=== PATIENT | female | born 1995 | race Caucasian/White ===

== ENCOUNTER 2019-12-10 19:32 | Emergency (ER) | payer BC, SELFPAY ==
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
[2019-12-10 20:15] LABS: Basophils Percent Auto 0.5 % (0.2-1.2); Eosinophils Absolute Auto 0.2 K/mm3 (0-0.3); Eosinophils Percent Auto 3.2 % (0-4.4); Hematocrit 37.1 % (37.0-47.0); Hemoglobin 12.8 g/dL (12.0-15.0); Immature Granulocyte Absolute 0.01 K/mm3 (0.00-0.031); Immature Granulocyte Percent A 0.2 % (0-0.5); Lymphocytes Absolute Auto 2.08 K/mm3 (0.9-3.2); Lymphocytes Percent Auto 37.1 % (18.3-44.2); Mean Corpuscular HGB Conc 34.5 g/dl (32-36); Mean Corpuscular Hemoglobin 30.3 pg (26-34); Mean Corpuscular Volume 87.7 fl (80-100); Mean Platelet Volume 11.2 fl (7.4-10.4); Monocytes Absolute Auto 0.3 K/mm3 (0.1-0.6); Monocytes Percent Auto 4.5 % (2.6-8.5); Neutrophils Absolute Auto 3.1 K/mm3 (1.3-6.7); Neutrophils Percent Auto 54.5 % (45.5-73.1); Platelet Count Result 185 k/mm3 (150-375); Red Blood Count 4.23 M/mm3 (4.2-5.4); Red Cell Distribution Width 11.7 % (11.5-14.5); White Blood Count 5.6 K/mm3 (4.5-10.0)
[2019-12-10 20:21] VITALS: BP 115/60; PULSE 67; RESP 20; TEMP 37.1; O2SAT 99
[2019-12-10 20:30] LABS: Add Urine Microscopic? YES; Appearance Urine Clear (Clear); Bacteria Urine Trace /hpf; Bilirubin Urine Negative (Negative); Blood Urine Negative (Negative); Color Urine Straw (Yellow); Glucose Urine UA Negative (Negative); Ketones Urine Negative (Negative); Leukocyte Esterase Ur 2+ LEU/UL (Negative); Mucus Urine Rare /lpf; Nitrate Urine Negative (Negative); Protein Urine Negative (Negative); RBC Urine 0-2 /hpf (0-2); Specific Grav Ur 1.005 (1.001-1.035); Squamous Epithelial Cell Urine Occasional /hpf (Few); Urobilinogen Urine Negative mg/dL (<2.0)
[2019-12-10 20:35] LABS: Ethanol < 10 mg/dL (<10)
[2019-12-10 20:43] LABS: Alanine Aminotransferase 16 U/L (4-35); Albumin Level 4.2 g/dL (3.5-5.1); Alkaline Phosphatase 58 U/L (38-126); Aspartate Amino Transferase 21 U/L (14-36); Bilirubin,Total 0.7 mg/dL (0.2-1.3); Blood Urea Nitrogen 10 mg/dL (7-17); Calcium 8.9 mg/dL (8.4-10.2); Carbon Dioxide 25 mmol/L (22-30); Chloride 106 mmol/L (98-107); Estimated CRCL calculation 106 ml/min; Estimated Glomerular Filt Rate > 60; Glucose 81 mg/dL (65-105); Sodium 138 mmol/L (137-145)
[2019-12-10 20:59] LABS: Amphetamine Screen Urine Negative (Negative); Barbiturate Screen Urine Negative (Negative); Benzodiazepines Screen Urine Positive (Negative); Cannabinoid Screen Urine Positive (Negative); Cocaine Screen Urine Negative (Negative); Methadone Screen Urine Negative (Negative); Opiate Screen Urine Negative (Negative); Phencyclidine Screen Urine Negative (Negative)
[2019-12-10 21:01] LABS: Potassium 3.3 mmol/L (3.4-5.0)
--- NOTE | 2019-12-10 22:08 | PC.NURSE ---
crisis nurse in with pt.
[2019-12-11 00:10] VITALS: BP 114/63; PULSE 73; RESP 16; O2SAT 100
[2019-12-11 04:40] VITALS: BP 112/62; PULSE 79; RESP 16; O2SAT 100
[2019-12-11 07:29] VITALS: BP 103/65; PULSE 70; RESP 14; O2SAT 97
--- NOTE | 2019-12-11 07:30 | PC.NURSE ---
Assumed care of pt, pt is alert and upright on stretcher, pt calm and cooperative. Discussed POC, ordered breakfast tray for pt. Pt VSS. Pt denies SI/HI at this time. Sitter remains at bedside.
[2019-12-11 11:04] VITALS: BP 106/53; PULSE 76; RESP 15; O2SAT 100
--- NOTE | 2019-12-11 12:03 | PC.NURSE ---
spoke to dietary, lunch tray ordered for pt
[2019-12-11 14:12] VITALS: BP 121/88; PULSE 75; RESP 15; O2SAT 100
--- NOTE | 2019-12-11 18:02 | ED.GENADULT ---
HPI - General Adult General Chief complaint: Psychiatric Symptoms Stated complaint: SI Time Seen by Provider: 12/11/19 17:54 Related Data Home Medications Medication Instructions Recorded Confirmed budesonide-formoterol [Symbicort] 2 puff INHALATION Q12H 12/10/19 cetirizine mg 12/10/19 Allergies Allergy/AdvReac Type Severity Reaction Status Date / Time ANESTETICS AdvReac Intermediate Uncoded 12/12/14 23:15 [facility] Past Medical History Medical History (Updated 12/11/19 @ 06:00 by Tr Gardner MD) Depression Surgical History Surgical History (Updated 12/10/19 @ 20:06 by Tr Gardner MD) No pertinent past surgical history Social History Social History (Updated 12/10/19 @ 20:07 by Tr Gardner MD) Smoking status: Never smoker Alcohol intake: never Substance use type: marijuana Course Vital Signs Vital signs: Vital Signs Temperature 37.1 C 12/10/19 20:21 Pulse Rate 67 12/10/19 20:21 Respiratory Rate 20 12/10/19 20:21 Blood Pressure 115/60 12/10/19 20:21 Pulse Oximetry 99 12/10/19 20:21 Temperature 36.7 C 12/12/19 15:14 Pulse Rate 75 12/12/19 15:14 Respiratory Rate 16 12/12/19 15:14 Blood Pressure 98/68 L 12/12/19 15:14 Pulse Oximetry 98 12/12/19 15:14 Medical Decision Making Vital Signs Vital Signs: Vital Signs Temperature 37.1 C 12/10/19 20:21 Pulse Rate 67 12/10/19 20:21 Respiratory Rate 20 12/10/19 20:21 Blood Pressure 115/60 12/10/19 20:21 Pulse Oximetry 99 12/10/19 20:21 Temperature 36.7 C 12/12/19 15:14 Pulse Rate 75 12/12/19 15:14 Respiratory Rate 16 12/12/19 15:14 Blood Pressure 98/68 L 12/12/19 15:14 Pulse Oximetry 98 12/12/19 15:14 Lab Data Result diagrams: 12/10/19 20:03 12/10/19 20:03 Labs: Lab Results 12/10/19 12/10/19 12/10/19 Range/Units 20:03 20:03 20:03 WBC 5.6 (4.5-10.0) K/mm3 RBC 4.23 (4.2-5.4) M/mm3 Hgb 12.8 (12.0-15.0) g/dL Hct 37.1 (37.0-47.0) % MCV 87.7 (80-100) fl MCH 30.3 (26-34) pg MCHC 34.5 (32-36) g/dl RDW 11.7 (11.5-14.5) % Plt Count 185 (150-375) k/mm3 MPV 11.2 H (7.4-10.4) fl Immature Gran % (Auto) 0.2 (0-0.5) % Neut % (Auto) 54.5 (45.5-73.1) % Lymph % (Auto) 37.1 (18.3-44.2) % [place] % (Auto) 4.5 (2.6-8.5) % Eos % (Auto) 3.2 (0-4.4) % Baso % (Auto) 0.5 (0.2-1.2) % Lymph # (Auto) 2.08 (0.9-3.2) K/mm3 [place] # (Auto) 0.3 (0.1-0.6) K/mm3 Eos # (Auto) 0.2 (0-0.3) K/mm3 Baso # (Auto) 0.0 (0.0-0.1) K/mm3 Abs Immat Gran (auto) 0.01 (0.00-0.031) K/mm3 Absolute Neuts (auto) 3.1 (1.3-6.7) K/mm3 Absolute Nucleated RBC 0.0 (0.0-0.012) K/mm3 Nucleated RBC % 0.0 (0.0-0.2) % Sodium 138 (137-145) mmol/L Potassium 3.3 L (3.4-5.0) mmol/L Chloride 106 (98-107) mmol/L Carbon Dioxide 25 (22-30) mmol/L BUN 10 (7-17) mg/dL Creatinine 0.60 L (0.7-1.0) mg/dL Estim Creat Clear Calc 106 ml/min Estimated GFR > 60 (59 - ) Glucose 81 (65-105) mg/dL Calcium 8.9 (8.4-10.2) mg/dL Total Bilirubin 0.7 (0.2-1.3) mg/dL AST 21 (14-36) U/L ALT 16 (4-35) U/L Alkaline Phosphatase 58 (38-126) U/L Total Protein 7.0 (6.3-8.2) g/dL Albumin 4.2 (3.5-5.1) g/dL TSH 1.320 (0.465-4.680) uIU/mL Urine Color (Yellow) Urine Appearance (Clear) Urine pH (5.0-9.0) Ur Specific [place] (1.001-1.035) Urine Protein (Negative) mg/dL Urine Glucose (UA) (Negative) mg/dL Urine Ketones (Negative) mg/dL Ur Blood (Man) (Negative) Urine Nitrate (Negative) Urine Bilirubin (Negative) Urine Urobilinogen (<2.0) mg/dL Leukocyte Esterase Rfl (Negative) CHRISTIANO/UL Urine RBC (0-2) /hpf Urine WBC /hpf Ur Squamous Epith Cells (Few) /hpf Urine Bacteria /hpf Urine Mucus /lpf Urine Opiates Screen (Negativ
[2019-12-11 18:06] LABS: SARS-CoV-2 RNA PCR Negative
[2019-12-11 18:13] VITALS: BP 108/68; PULSE 62; RESP 14; O2SAT 100
--- NOTE | 2019-12-11 19:52 | PC.NURSE ---
Patient given shower at this time.
--- NOTE | 2019-12-11 20:26 | PC.NURSE ---
Paperwork faxed to [place], [facility], and [place].
--- NOTE | 2019-12-11 23:14 | PC.NURSE ---
Spoke to Ivory from Crisis, Ivory states the plan is to wait until morning to hear back from an inpatient facility regarding placement. Pt notified. Patient still voluntary at this time.
[2019-12-12 01:37] VITALS: BP 120/66; PULSE 70; RESP 17; TEMP 36.8; O2SAT 97
[2019-12-12 06:50] VITALS: BP 121/78; PULSE 83; RESP 14; TEMP 36.8; O2SAT 98
[2019-12-12] MEDS: ACETAMINOPHEN 500 MG TABLET 1000 MG PO (07:03)
[2019-12-12 09:46] VITALS: BP 134/87; PULSE 73; RESP 16; TEMP 37; O2SAT 100
[2019-12-12] MEDS: LORazepam 0.5 MG TABLET PO (11:51)
[2019-12-12 15:14] VITALS: BP 98/68; PULSE 75; RESP 16; TEMP 36.7; O2SAT 98
== END 2019-12-12 17:43 ==
PROVIDERS: Emergency Medicine; Emergency Provider Emergency Medicine
DX: S61.512A Laceration without foreign body of left wrist, initial encounter (principal); S61.511A Laceration without foreign body of right wrist, initial encounter; F32.9 Major depressive disorder, single episode, unspecified; Z11.59 Encounter for screening for other viral diseases; X78.9XXA Intentional self-harm by unspecified sharp object, initial encounter
CPT/HCPCS: 12004; 36415; 80053; 80307; 81001; 81025; 84443; 85025; 87077; 87086; 87088; 87186; 87635; 99285; A9270; C9803; U0003

== ENCOUNTER 2020-07-02 13:59 | Emergency (ER) | payer BC, SELFPAY ==
--- NOTE | ~2020-07-02 | XR_ITS ---
EXAMINATION: XR elbow RT min 3V DATE: 07/02/2020 14:31 INDICATION: Posterior right elbow pain post fall down steps. TECHNIQUE: Anteroposterior, two oblique and lateral views of the right elbow were obtained. COMPARISON: None. FINDINGS: There is increased angulation at the radial head neck junction consistent with nondisplaced fracture. Alignment remains essentially anatomic. Joint spaces are normal. Mild soft tissue swelling posterior to the proximal forearm. IMPRESSION: 1. Nondisplaced impacted fracture at the right radial neck. Reviewed, dictated and finalized at location B. STICS SUPPLY OFFICER
--- NOTE | ~2020-07-02 | XR_ITS ---
EXAMINATION: XR wrist LT min 3V DATE: 07/02/2020 14:32 INDICATION: Anterior and radial sided left wrist pain post fall down stairs TECHNIQUE: Posteroanterior, ulnar deviation, oblique, and lateral views of the left wrist were obtain ed. COMPARISON: none FINDINGS: Alignment is normal. No fracture. Joint spaces are normal. Soft tissues are unremarkable. IMPRESSION: 1. Negative left wrist radiographs. Reviewed, dictated and finalized at location B. L PICKING MACHINE OPERATOR
[2020-07-02 14:16] VITALS: BP 120/70; PULSE 73; RESP 18; TEMP 36.8; O2SAT 100
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
== END 2020-07-02 15:09 | disposition home or self-care (01) ==
PROVIDERS: Emergency Provider Nurse Practitioner
DX: S52.134A Nondisplaced fracture of neck of right radius, initial encounter for closed fracture (principal); Y04.2XXA Assault by strike against or bumped into by another person, initial encounter; M25.532 Pain in left wrist; F32.9 Major depressive disorder, single episode, unspecified
CPT/HCPCS: 73080; 73110; 99214; A4565; G0463

== ENCOUNTER 2021-03-07 11:43 | Emergency (ER) | payer BC, SELFPAY ==
[2021-03-07 11:50] VITALS: BP 110/65; PULSE 102; RESP 18; TEMP 36.3; O2SAT 100
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
== END 2021-03-07 12:28 | disposition home or self-care (01) ==
PROVIDERS: Emergency Provider Registered Nurse; PCP Physician Assistant
DX: J02.0 Streptococcal pharyngitis (principal)
CPT/HCPCS: 87880; 99213; G0463

== ENCOUNTER → 2021-12-16 13:26 | Outpatient (CLI) | payer BC, SELFPAY ==
--- NOTE | ~2021-12-16 | XR_ITS ---
EXAMINATION: XR chest 2V 12/16/2021 14:14 INDICATION: Dyspnea PROCEDURE: 2 view chest COMPARISON: 12/13/2014 FINDINGS: The lungs are clear. The cardiomediastinal silhouette is within normal limits. There are no pleural effusions. There is no pneumothorax suspected. IMPRESSION: 1: NO ACUTE CARDIOPULMONARY DISEASE. Reviewed, dictated and finalized at location A.
== END ==
PROVIDERS: PCP Physician Assistant; Visit Provider Physician Assistant
DX: R06.00 Dyspnea, unspecified (principal)
CPT/HCPCS: 71046